=== PATIENT | female | born 1985 | race Caucasian/White ===

== ENCOUNTER 2020-02-26 16:50 | Emergency (ER) | payer OTHER ==
[~2020-02-26] VITALS: Ht 157.5 cm; Wt 59.0 kg
[~2020-02-26 16:50] MED LIST: PROTONIX40 MG PO; ZANTAC300 MG PO
[2020-02-26] MEDS ORDERED: SYNTHROID137 MCG (17:17)
== END 2020-02-26 21:18 | disposition home or self-care (01) ==
LOC: ER 16:50
DX: O20.0 Threatened abortion (principal)

== ENCOUNTER 2020-07-30 16:29 | Emergency (ER) | payer OTHER ==
[~2020-07-30] VITALS: Ht 157.5 cm; Wt 56.7 kg
[~2020-07-30 16:29] MED LIST changes: +SYNTHROID137 MCG
[2020-07-30] MEDS ORDERED: CLINDAMYCIN HC150 MG PO (19:29)
[2020-07-30] MEDS ORDERED: INTESTINEX680 M1 PO (19:29)
== END 2020-07-30 19:37 ==
LOC: ER 16:29
DX: K04.7 Periapical abscess without sinus (principal); J03.80 Acute tonsillitis due to other specified organisms

== ENCOUNTER 2021-01-02 12:09 | Outpatient (CLI) | payer OTHER ==
[~2021-01-02 12:09] MED LIST changes: +CLINDAMYCIN HC150 MG PO; +INTESTINEX680 M1 PO
== END 2021-01-02 12:17 | disposition home or self-care (01) ==
LOC: LAB 12:09
PROVIDERS: ATTEND Internal Medicine Hematology & Oncology
DX: D64.89 Other specified anemias (principal); D68.8 Other specified coagulation defects; E70.331 Hermansky-Pudlak syndrome